=== PATIENT | female | born 1955 | race Caucasian/White ===

== ENCOUNTER 2023-08-04 06:19 | Day surgery (SDC) | payer OTHER, SELFPAY ==
[2023-08-04] VITALS (14 sets, daily range): BP systolic 128–150; BP diastolic 65–84
[2023-08-04] MEDS: CELEBREX 200 MG PO (06:51)
[2023-08-04] MEDS: HEPARIN 5000 UNITS SC (06:51)
[2023-08-04] MEDS: NEURONTIN 300 MG PO (06:51)
[2023-08-04] MEDS: TYLENOL 1000 MG PO (06:51)
[2023-08-04] MEDS: NORMOSOL-R 1000 IV (07:04)
[2023-08-04] MEDS: SUBLIMAZE 50 MCG IV (11:41)
[2023-08-04] MEDS: ZOFRAN 4 MG IV (13:33)
== END 2023-08-04 15:35 | disposition home or self-care (01) ==
LOC: SDS 06:19
PROVIDERS: ATTENDING PHYSICIAN Obstetrics & Gynecology Gynecologic Oncology
DX: C54.1 Malignant neoplasm of endometrium (principal); C77.5 Secondary and unspecified malignant neoplasm of intrapelvic lymph nodes; C54.8 Malignant neoplasm of overlapping sites of corpus uteri
CPT/HCPCS: 58573; 38900; 38571; 88305; 88307; 88309; 86850; 86900; 86901; 86920; 88112; 88342; 88360; 93005